=== PATIENT | female | born 1955 | race Caucasian/White ===

== ENCOUNTER → 2016-11-07 | Outpatient (CLI) | payer BC ==
--- NOTE | 2016-11-07 16:21 | WOMENS IMAGING REPORT ---
EXAM DESCRIPTION: BILAT SCREENING MAMMO W/CAD COMPLETED DATE/TIME: 11/07/2016 4:07 pm REASON FOR STUDY: ROUTINE SCREENING; Z12.31 Z12.31 ENCNTR SCREEN MAMMOGRAM FOR MALIGNANT NEOPLASM O F SYDNI COMPARISON: 07/24/2012. TECHNIQUE: Standard craniocaudal and mediolateral oblique views of each breast recorded using Pyroliaa l acquisition. LIMITATIONS: None. FINDINGS: RIGHT BREAST MASSES: No suspicious masses. CALCIFICATIONS: No new or suspicious calcifications. ARCHITECTURAL DISTORTION: None. DEVELOPING DENSITY: Developing density in the inferior medial breast, located 4- 5 cm from the nipple . ASYMMETRY: None noted. OTHER: No other significant findings. LEFT BREAST MASSES: Stable small cysts. No suspicious masses. CALCIFICATIONS: No new or suspicious calcifications. ARCHITECTURAL DISTORTION: None. DEVELOPING DENSITY: None. ASYMMETRY: None noted. OTHER: No other significant findings. Read with the assistance of CAD. .[facility] - R2 Cenova Version 1.3 .[facility] Imaging - R2 Cenova Version 1.3 .[facility] Imaging - R2 Cenova Version 2.4 .[facility] [place] - R2 Cenova Version 2.4 .[facility] - R2 Associate Professor Plant Pathology Version 9.2 IMPRESSION: Developing density in the right breast. Stable mammographic appearance of the left [address]. BREAST DENSITY: b. There are scattered areas of fibroglandular density. BIRAD: 0 Incomplete: Needs Additional Imaging Evaluation and/or prior Mammograms for Comparison. RECOMMENDATION: RECOMMENDED FOLLOW-UP: Recommend additional evaluation with compression views and ul trasound of the right breast. Recommend routine screening mammography of the left breast. The patient will be contacted for additional imaging. COMMENT: The patient has been notified of the results by letter per [place] requirements. Additional no tification policies are in place for contacting patient with suspicious or incomplete findings. Quality ID #[id number]: The [employer] recommends an annual screening mammogram for women aged 40 years or over. This facility utilizes a reminder system to ensure that all patients receive reminder letters, and/or direct phone calls for appointments. This includes reminders for routine scr eening mammograms, diagnostic mammograms, or other Breast Imaging Interventions when appropriate. Th is patient will be placed in the appropriate reminder system. The [employer] ([employer]) has developed recommendations for screening MRI of the breast s in certain patient populations, to be used in conjunction with mammography. Breast MRI surveillanc e may be appropriate for women with more than 20% lifetime risk of developing breast cancer as deter mined by genetic testing, significant family history of the disease, or history of mantle radiation f or Hodgkins Disease. ACR Practice Guidelines 2008. TECHNICAL DOCUMENTATION: FINDING NUMBER: (1) ASSESSMENT: (1) JOB ID: [id number] [employer]- All Rights Reserved
== END ==
LOC: WI 15:29
PROVIDERS: ATTEND Nurse Practitioner Family
DX: Z12.31 Encounter for screening mammogram for malignant neoplasm of breast (principal); R92.2 Inconclusive mammogram
CPT/HCPCS: 77067; G0202

== ENCOUNTER → 2016-11-21 | Outpatient (CLI) | payer BC ==
--- NOTE | 2016-11-21 14:25 | WOMENS IMAGING REPORT ---
EXAM DESCRIPTION: RIGHT DIAGNOSTIC MAMMO W/CAD; U/S BREAST UNILAT LIMITED COMPLETED DATE/TIME: 11/21/2016 12:35 pm; 11/21/2016 1:16 pm REASON FOR STUDY: RT BREAST DENSITY N63; RIGHT BREAST DENSITY; N63 N63 UNSPECIFIED LUMP IN BREAST COMPARISON: 11/07/2016 TECHNIQUE: True lateral and cone compression views. LIMITATIONS: None. FINDINGS: BREAST: right MASSES: Small mass medial subareolar persists with cone compression. CALCIFICATIONS: No new or suspicious calcifications. ARCHITECTURAL DISTORTION: None. DEVELOPING DENSITY: None. ASYMMETRY: None noted. OTHER: No other significant findings. Ultrasound of the right breast was performed. In the 3-4 o'clock position there is a 9 x 4 x 6 mm hy poechoic lesion with irregular posterior suarez and no through transmission. IMPRESSION: Possible complex cyst. BREAST DENSITY: b. There are scattered areas of fibroglandular density. BIRAD: 0 Incomplete: Needs additional imaging evaluation and/or prior mammograms for comparison. RECOMMENDATION: RECOMMENDED FOLLOW UP: Birads 0: Mammographic and Ultrasound imaging did not solve t he problem. SPECIFIC INTERVENTION/IMAGING/CONSULTATION RECOMMENDED:Needs diagnostic cyst aspiration. COMMUNICATION:The imaging findings were not discussed with the patient. Her referring provider was no tified at 1411 hours on 11/21/2016. COMMENT: The patient has been notified of the results by letter per MQ[place] requirements. Additional no tification policies are in place for contacting patient with suspicious or incomplete findings. Quality ID #[id number]: The [employer] recommends an annual screening mammogram for women aged 40 years or over. This facility utilizes a reminder system to ensure that all patients receive reminder letters, and/or direct phone calls for appointments. This includes reminders for routine scr eening mammograms, diagnostic mammograms, or other Breast Imaging Interventions when appropriate. Th is patient will be placed in the appropriate reminder system. The [employer] (A[employer]) has developed recommendations for screening MRI of the breast s in certain patient populations, to be used in conjunction with mammography. Breast MRI surveillanc e may be appropriate for women with more than 20% lifetime risk of developing breast cancer as deter mined by genetic testing, significant family history of the disease, or history of mantle radiation f or Hodgkins Disease. ACR Practice Guidelines 2008. TECHNICAL DOCUMENTATION: FINDING NUMBER: (1) ASSESSMENT: (1) JOB ID: [id number] [employer]- All Rights Reserved
== END ==
LOC: WI 12:17
PROVIDERS: ATTEND Nurse Practitioner Family
DX: N63 Unspecified lump in breast (principal)
CPT/HCPCS: 76642; G0206

== ENCOUNTER → 2016-12-08 | Day surgery (SDC) | payer BC ==
[~2016-12-08] MED LIST: LIDOCAINE 2% INJ (20 MG/ML) 20 ML MDV ONE
--- NOTE | 2016-12-10 02:53 | WOMENS IMAGING REPORT ---
EXAM DESCRIPTION: FINE NEEDLE ASPIRATION COMPLETED DATE/TIME: 12/08/2016 2:19 pm REASON FOR STUDY: N63, BREAST LUMP N63 UNSPECIFIED LUMP IN BREAST COMPARISON: Prior mammography and ultrasound LIMITATIONS: None PROCEDURE: The procedure was explained to the patient. Possible complications include bleeding and infection. She asked that we proceed with the procedure. The area of concern in the right breast was localized with ultrasound. Using appropriate sterile technique and lidocaine as local anesthesia, the targeted cyst was aspirate d using direct ultrasound visualization. Approximately 1 ml of fluid was aspirated. The aspirated fl uid was discarded. Thick white fluid. . The patient tolerated the procedure without immediate complications. IMPRESSION: SUCCESSFUL CYST ASPIRATION IN THE right BREAST. Benign fluid. THE PATIENT CAN RESUME ROUTINE MAMMOGRAPHIC FOLLOW-UP. TECHNICAL DOCUMENTATION: JOB ID: [id number] [employer]- All Rights Reserved
== END ==
LOC: WI 13:06
PROVIDERS: ATTEND Nurse Practitioner Family
PROC: 0H9T3ZX Drainage of Right Breast, Percutaneous Approach, Diagnostic (ICD-10-PCS; principal; 2016-12-08)
DX: N63 Unspecified lump in breast (principal)
CPT/HCPCS: 10022; J3490